=== PATIENT | female | born 1960 | race Caucasian/White ===

== ENCOUNTER 2018-10-02 10:58 | Emergency (ER) | payer OTHER ==
[~2018-10-02] VITALS: Ht 177.8 cm; Wt 108.9 kg
[2018-10-02 10:58] VITALS: BP 148/78
[~2018-10-02 10:58] MED LIST: ACET-8386 PO; CARI350T PO
--- NOTE | 2018-10-02 11:11 | NUR ---
PATIENT AMBULATED TO BED 8 AT THIS TIME.
--- NOTE | 2018-10-02 11:20 | NUR ---
PATIENT PRESENTS TO ED WITH LT SHOULDER/ARM PAIN S/P MECHANICAL FALL IN BATHROOM 1 HR AGO. PT DENIES ALOC. AAOX4. PATIENT STATES PAIN OF 9/10 AT THIS TIME. +RADIAL/+BRACHIAL PULSES, -SWELLING, LIMITED ROM TO AFFECTED EXTREMITY. CAP REFILL <3 SECS. BED IN LOWEST POSITION, LOCKED, BEDRAIL UP X1 FOR SAFETY. ERMD TO SEE PT.
--- NOTE | 2018-10-02 11:47 | NUR ---
X-Ray at bedside.
[2018-10-02] MEDS ORDERED: KETOROLAC 30 MG/ML VIAL IM ONE (12:05)
[2018-10-02 13:02] VITALS: BP 151/86
--- NOTE | 2018-10-02 13:02 | NUR ---
Patient discharged with BP 151/86 DENIES HERNANDES OR DIZINESS AT THIS TIME. Written and verbal after care instructions given and explained. Patient alert, oriented and verbalized understanding of instructions. Ambulatory with steady gait. All questions addressed prior to discharge. ID band removed. Patient advised to follow up with PMD. Rx of IBUPROFEN & ACETAMINOPHEN given. Patient educated on indication of medication including possible reaction and side effects. Opportunity to ask questions provided and answered.
== END 2018-10-02 13:02 | disposition home or self-care (01) ==
LOC: MED 10:58
DX: S40.012A Contusion of left shoulder, initial encounter (principal); I10 Essential (primary) hypertension; Z79.891 Long term (current) use of opiate analgesic; Z79.899 Other long term (current) drug therapy; Z98.890 Other specified postprocedural states; W01.0XXA Fall on same level from slipping, tripping and stumbling without subsequent striking against object, initial encounter; Y93.E1 Activity, personal bathing and showering; Y92.091 Bathroom in other non-institutional residence as the place of occurrence of the external cause; Y99.8 Other external cause status
CPT/HCPCS: 73030; 81002; 81025; 96372; 99283; J1885; Q0092